=== PATIENT | female | born 1995 | race Caucasian/White ===

== ENCOUNTER 2018-11-22 12:29 | Emergency (ER) | payer OTHER ==
[2018-11-22 17:06] LABS: ABS Basophils 0 10^3/ul (0-0.2); ABS Eosinophils 0 10^3/ul (0-0.6); ABS Lymphocytes 1.6 10^3/ul (1.0-4.8); ABS Monocytes 0.3 10^3/ul (0-0.8); ABS Neutrophils 8.2 10^3/ul (1.5-7.7); ABS Nucleated RBC 0 10^3/ul; Eosinophil % 0.1 %; Hematocrit 43 % (33-41); Hemoglobin 14.9 g/dL (12.0-16.0); Lymphocyte % 15.4 %; Mean Corpuscular HGB Conc 35 g/dL (31-36); Mean Corpuscular Hemoglobin 30 pg (27-31); Mean Corpuscular Volume 88 fL (80-97); Mean Platelet Volume 7.3 fL (7.4-10.4); Nucleated Red Blood Cells % 0.1; Platelet Count 355 10^3/uL (150-450); Red Cell Distribution Width 13 % (10.5-15); White Blood Count 10.1 10^3/uL (3.5-10.8)
[2018-11-22 17:23] LABS: ALT 27 U/L (7-52); AST 19 U/L (13-39); Albumin 4.7 g/dL (3.2-5.2); Albumin/Globulin Ratio 1.7 (1-3); Alkaline Phosphatase 60 U/L (34-104); Anion Gap 7 mmol/L (2-11); Blood Urea Nitrogen 8 mg/dL (6-24); C Reactive Protein < 1.00 mg/L (<8.01); CO2 Carbon Dioxide 25 mmol/L (22-32); Calcium 9.7 mg/dL (8.6-10.3); Chloride 104 mmol/L (101-111); EGFR African American 121.8 (>60); EGFR Non-African American 100.6 (>60); Globulin 2.7 g/dL (2-4); Glucose 104 mg/dL (70-100); Potassium 4.5 mmol/L (3.5-5.0); Sodium 136 mmol/L (135-145); Total Protein 7.4 g/dL (6.4-8.9)
[2018-11-22 17:29] LABS: HCG Pregnancy < 0.60 mIU/mL
[2018-11-22] MEDS ORDERED: NS 0.9% 1000 ML** 1,000 ML IV ONE (17:38)
--- NOTE | 2018-11-22 17:38 | ED ---
Abdominal Pain/Female - HPI Summary HPI Summary: A 23 y/o female presents to [facility] with a chief complaint of RLQ pain since 08: 00 today. She reports that her pain has gotten better throughout the day. She went to [facility] and was sent to the ED to rule out appendicitis. She reports diarrhea but denies N/V. She had a hernia surgery in 2003. - History of Current Complaint Chief Complaint: EDAbdPain Stated Complaint: POSS APPENDICITIS PER PT Time Seen by Provider: 11/22/18 17:26 Hx Obtained From: Patient Onset/Duration: Sudden Onset, Lasting Hours, Still Present Timing: Constant Severity Initially: Severe Severity Currently: Moderate Pain Intensity: 6 Pain Scale Used: 0-10 Numeric Location: Discrete At: RLQ Radiates: No Character: Other: - unable to describe Aggravating Factor(s): Nothing Alleviating Factor(s): Nothing Associated Signs and Symptoms: Positive: Diarrhea. Negative: Fever, Nausea, Vomiting Allergies/Adverse Reactions: Allergies Allergy/AdvReac Type Severity Reaction Status Date / Time Sulfa (Sulfonamide Allergy Rash Verified 11/22/18 12:34 Antibiotics) Home Medications: Home Medications NK [No Home Medications Reported] 11/22/18 [History Confirmed 11/22/18] PMH/Surg Hx/FS Hx/Imm Hx GI History: Reports: Other GI Disorders - hernia Sensory History: Denies: Hx Deafness EENT History: Denies: Hx Deafness - Surgical History Surgery Procedure, Year, and Place: hernia removed 2003 Infectious Disease History: No Infectious Disease History: Denies: Traveled Outside the [place] in Last 30 Days - Family History Known Family History: Negative: Blood Disorder - Social History Alcohol Use: None Substance Use Type: Reports: None Smoking Status (MU): Never Smoked Tobacco Review of Systems Negative: Fever Positive: Abdominal Pain, Diarrhea. Negative: Vomiting, Nausea All Other Systems Reviewed And Are Negative: Yes Physical Exam - Summary Physical Exam Summary: Appearance: Well appearing, no pain distress Skin: warm, dry, reflects adequate perfusion Head/face: normal Eyes: EOMI, MARIBEL ENT: normal Neck: supple, non-tender Respiratory: CTA, breath sounds present Cardiovascular: RRR, pulses symmetrical Abdomen:RLQ tenderness, soft Musculoskeletal: normal, strength/ROM intact Neuro: normal, sensory motor intact, A&Ox3 Triage Information Reviewed: Yes Vital Signs On Initial Exam: Initial Vitals Temp Pulse Resp BP Pulse Ox 99.0 F 80 16 130/81 100 11/22/18 12:30 11/22/18 12:30 11/22/18 12:30 11/22/18 12:30 11/22/18 12:30 Vital Signs Reviewed: Yes Diagnostics - Vital Signs Vital Signs Temp Pulse Resp BP Pulse Ox 11/22/18 17:15 71 141/88 100 11/22/18 17:02 73 98 11/22/18 17:00 137/71 11/22/18 16:54 99.6 F 11/22/18 16:45 69 122/72 100 11/22/18 16:42 67 129/81 100 11/22/18 16:41 75 94 11/22/18 16:10 99.2 F 68 18 142/84 100 11/22/18 14:04 98.8 F 61 16 114/65 99 11/22/18 12:30 99.0 F 80 16 130/81 100 - Laboratory Lab Results: Lab Results 11/22/18 11/22/18 11/22/18 Range/Units 16:59 16:59 16:59 WBC 10.1 (3.5-10.8) 10^3/uL RBC 4.90 H (3.70-4.87) 10^6 /uL Hgb 14.9 (12.0-16.0) g/dL Hct 43 H (33-41) % MCV 88 (80-97) fL MCH 30 (27-31) pg MCHC 35 (31-36) g/dL RDW 13 (10.5-15) % Plt Count 355 (150-450) 10^3/uL MPV 7.3 L (7.4-10.4) fL Neut % (Auto) 81.4 % Lymph % (Auto) 15.4 % [place] % (Auto) 2.9 % Eos % (Auto) 0.1 % Baso % (Auto) 0.2 % Absolute Neuts (auto) 8.2 H (1.5-7.7) 10^3/ul Absolute Lymphs (auto) 1.6 (1.0-4.8) 10^3/ul Absolute Monos (auto) 0.3 (0-0.8) 10^3/ul Absolute Eos (auto) 0 (0-0.6) 10^3/ul Absolute Basos (auto) 0 (0-0.2) 10^3/ul Absolute Nucleated RBC 0 10^3/ul Nucleated RBC % 0.1 Sodium 136 (135-145) mmol/L Potassium 4.5 (3.5-5.0) mmol/L Chloride 104 (101-111) mmol/L Carbon Dioxide 25 (22-32) mmol/L Anion Gap 7 (2-11) mmol/L BUN 8 (6-24) mg/dL Creatinine 0.73 (0.51-0.95) mg/dL Est GFR ( Amer) 121.8 (>60) Est GFR (Non-Af Amer) 100.6 (>60) BUN/Creatinine Ratio 11.0 (8-20) Glucose 104 H (70-100) mg/dL Lactic Acid 1.0 (0.5-2.0) mmol/L Calcium 9.7 (8.6-10.3) mg/dL Total Bilirubin 0.80 (0.2-1.0) mg/dL AST 19 (13-39) U/L ALT 27 (7-52) U/L Alkaline Phosphatase 60 (34-104) U/L C-Reactive Protein < 1.00 (<8.01) mg/L Total Protein 7.4 (6.4-8.9) g/dL Albumin 4.7 (3.2-5.2) g/dL Globulin 2.7 (2-4) g/dL Albumin/Globulin Ratio 1.7 (1-3) Lipase 233 H (11.0-82.0) U/L Beta HCG, Quant < 0.60 mIU/mL Result Diagrams: 11/22/18 16:59 11/22/18 16:59 Lab Statement: Any lab studies that have been ordered have been reviewed, and results considered in the medical decision making process. - CT abdomen/pelvis CT Interpretation Completed By: Radiologist Summary of CT Findings: 1. A 3.3 x 2.1 cm low density structure is present in the right adnexa, likely related to the right ovary. This could be better evaluated with transvaginal. pelvic ultrasound if indicated. 2. Appendix not visualized, but no pericecal fluid or inflammatory change noted. to suggest appendicitis. 3. Trace free fluid in the pelvis. ED physician has reviewed this imaging report. Re-Evaluation - Re-Evaluation First Eval Re-Evaluation Time: 21:29 Change: Unchanged Comment: Discussed results and plan. Abdominal Pain Fem Course/Dx - Course Course Of Treatment: A 23 y/o female presents to [facility] with a chief complaint of RLQ pain since 08:00 today. The physical exam revealed RLQ tenderness. In the ED course the patient was given Sodium Chloride IV and Iohexol IV. Abdomen/ pelvis CT impression: 1. A 3.3 x 2.1 cm low density structure is present in the right adnexa, likely related to the right ovary. This could be better evaluated with transvaginal. pelvic ultrasound if indicated. 2. Appendix not visualized, but no pericecal fluid or inflammatory change noted. to suggest appendicitis. 3. Trace free fluid in the pelvis. Blood work, chemistries and urines obtained. The patient will be signed out to RENE Redd, at 22:00 pending ultrasound. - Diagnoses Differential Diagnosis: Positive: Appendicitis, Ovarian Cyst, Renal Colic, Urinary Tract Infection Provider Diagnoses: Abdominal pain, Ovarian cyst Discharge - Sign-Out/Discharge Documenting (check all that apply): Sign-Out Patient Signing out patient TO: Giacomo Holloway - pending ultrasound Patient Received Moderate/Deep Sedation with Procedure: No - Discharge Plan Condition: Stable Referrals: No Primary Care Phys,NOPCP [Primary Care Provider] - - Billing Disposition and Condition Condition: STABLE - Attestation Statements Document Initiated by Scribe: Yes Documenting Scribe: Emmett Licona Provider For Whom Scribe is Documenting (Include Credential): Zen Arreguin MD Scribe Attestation: Emmett Trammell scribed for Zen Arreguin MD on 11/22/18 at 2143. Scribe Documentation Reviewed: Yes Provider Attestation: The documentation as recorded by the Emmett woods accurately reflects the service I personally performed and the decisions made by me, Zen Arreguin MD Status of Scribe Document: Viewed
[2018-11-22] MEDS ORDERED: Iohexol 300* (CONTRAST) 10 ML SDV IV ONE (18:20)
[2018-11-22 20:29] LABS: Urine Appearance Clear; Urine Bilirubin Negative (Negative); Urine Blood Negative (Negative); Urine Color Colorless; Urine Glucose Negative (Negative); Urine Ketones Trace (Negative); Urine Nitrite Negative (Negative); Urine Protein Negative (Negative); Urine Specific Gravity 1.002 (1.010-1.030); Urine Urobilinogen Negative (Negative)
--- NOTE | 2018-11-22 22:14 | ED ---
Progress - Progress Note Progress Note: This patient is signed out from Dr. Arreguin at 2200 awaiting a Pelvic US. Pelvic/Tranvaginal US reveals, as per radiologist: 1. Normal arterial waveforms in both ovaries. No evidence of ovarian torsion. Please note that partial or intermittent torsion may be sonographically normal. 2. Patient could not tolerate transvaginal portion of exam. ED Physician has reviewed this report. Re-Evaluation - Re-Evaluation First Eval Re-Evaluation Time: 21:29 Change: Unchanged Comment: Discussed results and plan. Course/Dx - Course Course Of Treatment: Patient with CT scan showing possible right adnexal mass versus cyst which was confirmed on trans abdominal ultrasound. The patient did not tolerate transvaginal and images were limited. Her pain is much better here and she is discharged to follow up with her instructor warper and [facility]. - Diagnoses Provider Diagnoses: Ovarian cyst Discharge - Sign-Out/Discharge Documenting (check all that apply): Patient Departure - discharge Patient Received Moderate/Deep Sedation with Procedure: No - Discharge Plan Condition: Improved Disposition: HOME Patient Education Materials: Ovarian Cyst (ED) Forms: *Physical Education Release Referrals: [facility] [[employer] APPLICATION, OTHER] - Additional Instructions: Call first thing in the morning to schedule with the [facility]. Have them schedule you for a transabdominal ultrasound to reevaluate your pelvic discomfort. Call your instructor warper in follow up with them as soon as possible. Return with fever, uncontrolled pain, worse, new symptoms or other concerns. Take ibuprofen every 6-8 hours as needed for discomfort. Return to physical activity as tolerated. - Billing Disposition and Condition Condition: IMPROVED Disposition: Home - Attestation Statements Document Initiated by Leonela: Yes Documenting Scribe: Claudia Rust Provider For Whom Leonela is Documenting (Include Credential): César Archer MD Scribe Attestation: IClaudia, scribed for César Archer MD on 11/23/18 at 2214. Scribe Documentation Reviewed: Yes Provider Attestation: The documentation as recorded by the Claudia woods accurately reflects the service I personally performed and the decisions made by me, César Archer MD Status of Scribe Document: Viewed
[2018-11-22 23:48] VITALS: BP 125/74
== END 2018-11-22 23:47 | disposition home or self-care (01) ==
LOC: ED 12:29
DX: N83.209 Unspecified ovarian cyst, unspecified side (principal); K46.9 Unspecified abdominal hernia without obstruction or gangrene; Z88.2 Allergy status to sulfonamides
CPT/HCPCS: 36415; 74177; 76830; 76856; 80053; 81003; 83605; 83690; 84702; 85025; 86140; 96360; 96361; 99283; Q9967